=== PATIENT | female | born 2000 | race Caucasian/White ===

== ENCOUNTER 2019-12-06 11:30 | Emergency (ER) | payer SELFPAY ==
[~2019-12-06] VITALS: Ht 157 cm; Wt 115.3 kg
--- NOTE | 2019-12-06 11:57 | ED GU-Female ---
General Chief Complaint: Female Reproductive Stated Complaint: HEAVY VAG BLEEDING - POSS PREG Source: patient Exam Limitations: no limitations History of Present Illness Date Seen by Provider: Dec 06, 2019 Time Seen by Provider: 11:55 Initial Comments To ER with vaginal bleeding. States that she used about 6 tampons yesterday, 4 today. AB 3. States she has not had a period since June and is typically irregular. She's had 3 negative tests at home. Timing/Duration: constant Severity/Quality: other Prior Genitourinary Problems: none (no pain) Associated Symptoms: denies symptoms Allergies and Home Medications Home Medications Medroxyprogesterone Acetate 10 Mg Tablet, 10 MG PO DAILY Prescribed by: GI BLANKENSHIP on 12/06/19 1226 Patient Home Medication List Home Medication List Reviewed: Yes Review of Systems Review of Systems Constitutional: see HPI EENTM: see HPI Respiratory: no symptoms reported Cardiovascular: no symptoms reported Genitourinary: no symptoms reported Musculoskeletal: no symptoms reported Skin: no symptoms reported Psychiatric/Neurological: No Symptoms Reported Endocrine: No Symptoms Reported Past Mtrcxli-Mbuuwn-Xvmbzh Hx Patient Social History Recent Foreign Travel: No Contact w/Someone Who Travel: No Physical Exam Vital Signs Vital Signs - First Documented 12/06/19 11:40 Temp 36.6 Pulse 76 Resp 18 B/P (MAP) 135/81 (99) Pulse Ox 98 Capillary Refill : Height, Weight, BMI Height: '" Weight: lbs. oz. kg; BMI Method: General Appearance: WD/WN, no apparent distress HEENT: PERRL/EOMI, normal ENT inspection Respiratory: no respiratory distress, no accessory muscle use Gastrointestinal: normal bowel sounds, non tender Pelvic: normal external exam, other (pelvic exam with Mayelin, patient rn palliative care at the bedside. Small amount of dark blood in the vaginal vault, no h emorrhage.) Extremities: normal range of motion, non-tender Neurologic/Psychiatric: alert, normal mood/affect, oriented x 3 Skin: normal color, warm/dry Progress/Results/Core Measures Suspected Sepsis SIRS Temperature: Pulse: Respiratory Rate: Laboratory Tests 12/06/19 11:50: White Blood Count 8.5 Blood Pressure / Mean: Laboratory Tests 12/06/19 11:50: Creatinine 0.95, INR Comment 1.0, Platelet Count 346, Total Bilirubin 0.9 Results/Orders Lab Results Laboratory Tests Test 12/06/19 11:50 12/06/19 12:05 Range/Units White Blood Count 8.5 4.3-11.0 10^3/uL Red Blood Count 5.08 4.35-5.85 10^6/uL Hemoglobin 14.6 11.5-16.0 G/DL Hematocrit 45 35-52 % Mean Corpuscular Volume 88 80-99 FL Mean Corpuscular Hemoglobin 29 25-34 PG Mean Corpuscular Hemoglobin Concent 33 32-36 G/DL Red Cell Distribution Width 13.8 10.0-14.5 % Platelet Count 346 130-400 10^3/uL Mean Platelet Volume 10.8 H 7.4-10.4 FL Neutrophils (%) (Auto) 47 42-75 % Lymphocytes (%) (Auto) 39 12-44 % Monocytes (%) (Auto) 10 0-12 % Eosinophils (%) (Auto) 4 0-10 % Basophils (%) (Auto) 1 0-10 % Neutrophils # (Auto) 4.0 1.8-7.8 X 10^3 Lymphocytes # (Auto) 3.3 1.0-4.0 X 10^3 Monocytes # (Auto) 0.9 0.0-1.0 X 10^3 Eosinophils # (Auto) 0.3 0.0-0.3 10^3/uL Basophils # (Auto) 0.0 0.0-0.1 10^3/uL Prothrombin Time 13.3 12.2-14.7 SEC INR Comment 1.0 0.8-1.4 Activated Partial Thromboplast Time 31 24-35 SEC Sodium Level 141 135-145 MMOL/L Potassium Level 4.5 3.6-5.0 MMOL/L Chloride Level 113 H 98-107 MMOL/L Carbon Dioxide Level 16 L 21-32 MMOL/L Anion Gap 12 5-14 MMOL/L Blood Urea Nitrogen 11 7-18 MG/DL Creatinine 0.95 0.60-1.30 MG/DL Estimat Glomerular Filtration Rate > 60 BUN/Creatinine Ratio 12 Glucose Level 97 70-105 MG/DL Calcium Level 8.8 8.5-10.1 MG/DL Corrected Calcium 8.7 8.5-10.1 MG/DL Total Bilirubin 0.9 0.1-1.0 MG/DL Aspartate Amino Transf (AST/SGOT) 29 5-34 U/L Alanine Aminotransferase (ALT/SGPT) 33 0-55 U/L Alkaline Phosphatase 68 40-136 U/L Total Protein 7.8 6.4-8.2 GM/DL Albumin 4.1 3.2-4.5 GM/DL Serum Test, Qualitative NEGATIVE NEGATIVE Urine Color YELLOW Urine Clarity CLEAR Urine pH 5.5 5-9 Urine Specific [place] >=1.030 1.016-1.022 Urine Protein 1+ H NEGATIVE Urine Glucose (UA) NEGATIVE NEGATIVE Urine Ketones NEGATIVE NEGATIVE Urine Nitrite NEGATIVE NEGATIVE Urine Bilirubin 1+ H NEGATIVE Urine Urobilinogen 0.2 < = 1.0 MG/DL Urine Leukocyte Esterase NEGATIVE NEGATIVE Urine RBC (Auto) 3+ H NEGATIVE Urine RBC 2-5 H /HPF Urine WBC 0-2 /HPF Urine Squamous Epithelial Cells 2-5 /HPF Urine Crystals NONE /LPF Urine Amorphous Sediment FEW KATTY URATES H /LPF Urine Bacteria TRACE /HPF Urine Casts NONE /LPF Urine Mucus NEGATIVE /LPF Urine Culture Indicated YES Micro Results Microbiology 12/06/19 Genital Culture, Resulted Pending 12/06/19 Wet Prep - Final, Resulted My Orders Orders - GI BLANKENSHIP APRN Hcg,Qualitative Serum (12/06/19 11:52) Wet Prep (12/06/19 11:57) Genital Culture (12/06/19 11:57) Vital Signs/I&O 12/06/19 11:40 Temp 36.6 Pulse 76 Resp 18 B/P (MAP) 135/81 (99) Pulse Ox 98 Capillary Refill : Departure Impression Primary Impression: History of heavy vaginal bleeding Additional Impressions: Abnormal vaginal bleeding Bacterial vaginosis Disposition: 01 HOME, SELF-CARE Condition: Stable Departure-Patient Inst. Decision time for Depature: 12:24 Referrals: MANGO YU DENNIS G MD SHAW, ANGELA C DO Patient Instructions: Bacterial Vaginosis (DC), IRREGULAR VAGINAL BLEEDING Add. Discharge Instructions: 1. Follow-up with one of the gynecologists listed. Return to ER for any concerns. All discharge instructions reviewed with patient and/or family. Voiced understanding. Scripts Metronidazole (Flagyl) 500 Mg Tablet 500 MG PO BID, #14 TAB Prov: GI BLANKENSHIP APRN 12/06/19 Medroxyprogesterone Acetate (Medroxyprogesterone Acetate) 10 Mg Tablet 10 MG PO DAILY, #7 TAB Prov: GI BLANKENSHIP APRN 12/06/19 GI BLANKENSHIP APRN Dec 06, 2019 11:57
--- OUTSIDE RECORDS SUMMARY | 2019-12-06 11:57 | XMS REPORT | Continuity of Care Document ---
Author Organization Unknown Address Unknown Phone Unavailable Allergies There is no data. Medications There is no data. Problems There is no data. Procedures There is no data. Results Test Result Range COVID-19 ([facility]) - 11/06/19 10:08 TSH - 11/24/19 16:00 TSH 2.25 mIU/L NRG CULTURE, GENITAL - 11/25/19 16:19 CULTURE, GENITAL SEE NOTE NRG GC/CHLAMYDIA (SWAB OR URINE)-RAPID - 12/07 16:19 CHLAMYDIA TRACHOMATIS RNA, TMA NOT DETECTED NOT DETECTED NEISSERIA GONORRHOEAE RNA, TMA NOT DETECTED NOT DETECTED COMMENT NRG SUREPATH PAP RFX HPV mRNA E6/E7 - 16:19 CLINICAL INFORMATION: NRG LMP: NRG PREV. PAP: NRG PREV. BX: NRG SOURCE: NRG STATEMENT OF ADEQUACY: NRG INTERPRETATION/RESULT: NRG LABOR EXPEDITER: NRG INFECTION: NRG COMMENT NRG INSULIN LEVEL - 11/26/19 08:14 INSULIN 40.2 uIU/mL NRG FSH, SERUM - 11/26/19 08:14 FSH 7.7 mIU/mL NRG LH - 11/26/19 08:14 LH 9.6 mIU/mL NRG TESTOSTERONE, TOTAL (WOMEN, CHILDREN, HY POGONADAL MALES) - 11/26/19 08:14 TESTOSTERONE, TOTAL, LC/MS/MS NRG FREE TESTOSTERONE NRG Encounters ACCT No. Visit Date/Time Discharge Status Pt. Type Provider Facility Loc./Unit Complaint [id number] 11/26/2019 08:20:00 11/26/2019 23:59: 59 CLS Outpatient KACY ORNELAS LAC [id number] 11/26/2019 08:20:00 Document Registration [id number] 11/25/2019 15:20:00 Document Registration [id number] 11/24/2019 15:20:00 Document Registration [id number] 11/06/2019 16:45:00 Document Registration
[2019-12-06 12:01] LABS: BASOPHILS % (AUTO) 1 % (0-10); EOSINOPHILS # (AUTO) 0.3 10^3/uL (0.0-0.3); EOSINOPHILS % (AUTO) 4 % (0-10); HEMATOCRIT 45 % (35-52); HEMOGLOBIN 14.6 G/DL (11.5-16.0); LYMPHOCYTES # (AUTO) 3.3 X 10^3 (1.0-4.0); LYMPHOCYTES % (AUTO) 39 % (12-44); MEAN CORPUSCULAR HEMOGLOBIN 29 PG (25-34); MEAN CORPUSCULAR HGB CONC 33 G/DL (32-36); MEAN CORPUSCULAR VOLUME 88 FL (80-99); MEAN PLATELET VOLUME 10.8 FL (7.4-10.4); MONOCYTES # (AUTO) 0.9 X 10^3 (0.0-1.0); MONOCYTES % (AUTO) 10 % (0-12); NEUTROPHILS % (AUTO) 47 % (42-75); PLATELET COUNT 346 10^3/uL (130-400); RED CELL DISTRIBUTION WIDTH 13.8 % (10.0-14.5); WHITE BLOOD COUNT 8.5 10^3/uL (4.3-11.0)
[2019-12-06 12:14] LABS: ALBUMIN 4.1 GM/DL (3.2-4.5); CHLORIDE 113 MMOL/L (98-107); SODIUM 141 MMOL/L (135-145)
[2019-12-06 12:15] LABS: CALCIUM 8.8 MG/DL (8.5-10.1)
[2019-12-06 12:16] LABS: GLUCOSE 97 MG/DL (70-105); TOTAL PROTEIN 7.8 GM/DL (6.4-8.2)
[2019-12-06 12:17] LABS: CARBON DIOXIDE 16 MMOL/L (21-32); PROTHROMBIN TIME PATIENT 13.3 SEC (12.2-14.7)
[2019-12-06 12:18] LABS: BILIRUBIN,TOTAL 0.9 MG/DL (0.1-1.0); POTASSIUM 4.5 MMOL/L (3.6-5.0)
[2019-12-06 12:20] LABS: ALKALINE PHOSPHATASE 68 U/L (40-136); CREATININE SERUM 0.95 MG/DL (0.60-1.30); GFR ESTIMATED > 60
[2019-12-06 12:21] LABS: BUN/CREATININE RATIO 12
[2019-12-06 12:22] LABS: CLARITY,URINE CLEAR; COLOR,URINE YELLOW; GLUCOSE, URINE (UA) NEGATIVE (NEGATIVE); KETONES,URINE NEGATIVE (NEGATIVE); LEUKOCYTE ESTERASE ,URINE NEGATIVE (NEGATIVE); NITRITE,URINE NEGATIVE (NEGATIVE); PH,URINE 5.5 (5-9); PROTEIN,URINE 1+ (NEGATIVE)
[2019-12-06 12:23] LABS: ALANINE AMINOTRANSFERASE 33 U/L (0-55)
[2019-12-06 12:24] LABS: AMORPHOUS SEDIMENT,UR FEW AMOR URATES /LPF; BACTERIA,URINE TRACE /HPF; BILIRUBIN,URINE 1+ (NEGATIVE); WBC,URINE 0-2 /HPF
[2019-12-06] MEDS ORDERED: MEDR10TA9 PO (12:26)
[2019-12-06] MEDS ORDERED: METR500T PO (12:28)
[2019-12-06 12:33] VITALS: BP 133/89
== END 2019-12-06 12:36 | disposition home or self-care (01) ==
LOC: ER 11:31
DX: N76.0 Acute vaginitis (principal)
CPT/HCPCS: 36415; 80053; 81000; 84703; 85025; 85610; 85730; 87070; 87077; 87088; 87205; 87210

== ENCOUNTER → 2020-03-18 | Outpatient (CLI) | payer OTHER ==
[~2020-03-18] MED LIST: MEDR10TA9 PO; METR500T PO
--- NOTE | 2020-03-18 17:29 | Diagnostic Imaging Report ---
Ultrasound of the breasts, limited bilateral. INDICATION: Bilateral axillary lumps COMPARISON: There are no prior studies available for comparison. FINDINGS: Reportedly, the patient has pain and lumps in both axillae. The ultrasound examination of each axillae failed to show any sign of a discrete solid or cystic mass. There is no evidence for an abscess either. Clinical follow-up is recommended. IMPRESSION: There is no evidence for malignancy or for an acute abnormality. Clinical follow-up is recommended. ACR BI-RADS Category 1: Negative. Result letter will be mailed to the patient. Note: At least 10% of breast cancer is not imaged by mammography. Dictated by: Dictated on workstation # [id number]
== END ==
LOC: RAD 11:56
PROVIDERS: ATTEND Nurse Practitioner Family
DX: N63.32 Unspecified lump in axillary tail of the left breast (principal)
CPT/HCPCS: 76642

== ENCOUNTER 2020-10-28 17:13 | Emergency (ER) | payer SELFPAY ==
[~2020-10-28] VITALS: Ht 157 cm; Wt 126.0 kg
[2020-10-28] MEDS ORDERED: LIDOCAINE UROJET 2% GEL 10 ML PKG ONE (17:22)
[2020-10-28] MEDS ORDERED: LIDOCAINE UROJET 2% GEL 10 ML PKG TOP ONE (17:30)
--- NOTE | 2020-10-28 17:33 | ED GI ---
General Stated Complaint: RECTAL BLEEDING Source of Information: Patient Exam Limitations: No Limitations History of Present Illness Date Seen by Provider: Oct 28, 2020 Time Seen by Provider: 17:29 Initial Comments To ER by private vehicle with reports of rectal bleeding and pain with bowel movement after anal sex this morning at 7 AM. She states that she and her have anal sex a couple of times a week but she has never bled like this before. She states that she is only bleeding when she has a bowel movement and notices blood on the toilet paper. She has no bleeding diatheses, takes no anticoagulation. Timing/Duration: 1-2 Days Severity/Quality: Moderate Location: Other Radiation: No Radiation Associated Symptoms: Denies Symptoms Allergies and Home Medications Allergies Coded Allergies: Penicillins (Verified Allergy, Unknown, 10/28/20) sulfamethoxazole (Verified Allergy, Unknown, 10/28/20) trimethoprim (Verified Allergy, Unknown, 10/28/20) Home Medications Medroxyprogesterone Acetate 10 Mg Tablet, 10 MG PO DAILY Prescribed by: GI BLANKENSHIP on 12/06/19 1226 Metronidazole 500 Mg Tablet, 500 MG PO BID Prescribed by: GI BLANKENSHIP on 12/06/19 1228 Patient Home Medication List Home Medication List Reviewed: Yes Review of Systems Review of Systems Constitutional: see HPI EENTM: No Symptoms Reported Respiratory: No Symptoms Reported Cardiovascular: No Symptoms Reported Gastrointestinal: See HPI, Abdominal Pain Genitourinary: No Symptoms Reported Musculoskeletal: no symptoms reported Skin: no symptoms reported Psychiatric/Neurological: No Symptoms Reported Endocrine: No Symptoms Reported Hematologic/Lymphatic: No Symptoms Reported Past Slajitw-Yvejjv-Jebvhd Hx Patient Social History Type Used: Cigarettes 2nd Hand Smoke Exposure: Yes Recent Hopitalizations: No Immunizations Up To Date Tetanus Booster (TDap): Less than 5yrs Seasonal Allergies Seasonal Allergies: No Past Medical History Surgeries: No Respiratory: No Cardiac: No Neurological: No Genitourinary: No Gastrointestinal: No Musculoskeletal: No Endocrine: No HEENT: No Cancer: No Psychosocial: Yes Anxiety, Bipolar, Personality Disorder, Depression Integumentary: No Blood Disorders: No Adverse Reaction/Blood Tranf: No Physical Exam Vital Signs Capillary Refill : Height/Weight/BMI Height: '" Weight: lbs. oz. kg; 46.00 BMI Method: General Appearance: WD/WN, no apparent distress, obese HEENT: PERRL/EOMI, normal ENT inspection Neck: non-tender, full range of motion Respiratory: normal breath sounds, no respiratory distress, no accessory muscle use Cardiovascular: no murmur, tachycardia Gastrointestinal: normal bowel sounds, non tender, soft Neurologic/Psychiatric: alert, normal mood/affect, oriented x 3 Skin: normal color, warm/dry Exam Comments Genital exam done with Glenis RN at the bedside. There is no blood in the underwear. There is no blood at the anus. There is a posterior midline fissure. Progress/Results/Core Measures Results/Orders My Orders Orders - GI BLANKENSHIP APRN Lidocaine 2% (Urojet) (Xylocaine Urojet) (10/28/20 17:30) Departure Impression Primary Impression: Anal fissure Disposition: 01 HOME, SELF-CARE Condition: Stable Departure-Patient Inst. Decision time for Depature: 17:32 Referrals: [facility] (PCP) Primary Care Physician KYLE LUU APRN (Family) Primary Care Physician Patient Instructions: Anal Fissure (DC) Add. Discharge Instructions: 1. Keep your stool soft by drinking plenty of fluids and taking a stool softener like Colace. Use the cream as directed. GI BLANKENSHIP APRN Oct 28, 2020 17:33
[2020-10-28 17:38] VITALS: BP 136/99
== END 2020-10-28 17:38 | disposition home or self-care (01) ==
LOC: EDUNIT# 17:13 → ER 17:15
DX: K60.2 Anal fissure, unspecified (principal); R00.0 Tachycardia, unspecified; E66.9 Obesity, unspecified; Z68.42 Body mass index [BMI] 45.0-49.9, adult; Z77.22 Contact with and (suspected) exposure to environmental tobacco smoke (acute) (chronic)
CPT/HCPCS: 99282

== ENCOUNTER 2020-11-22 09:35 | Emergency (ER) | payer OTHER ==
[~2020-11-22] VITALS: Ht 157.4 cm; Wt 130.0 kg
[2020-11-22 09:58] LABS: BASOPHILS # (AUTO) 0.1 10^3/uL (0.0-0.1); BASOPHILS % (AUTO) 1 % (0-10); EOSINOPHILS # (AUTO) 0.6 10^3/uL (0.0-0.3); EOSINOPHILS % (AUTO) 5 % (0-10); HEMATOCRIT 47 % (35-52); LYMPHOCYTES # (AUTO) 3.1 10^3/uL (1.0-4.0); LYMPHOCYTES % (AUTO) 30 % (12-44); MEAN CORPUSCULAR HEMOGLOBIN 29 pg (25-34); MEAN CORPUSCULAR HGB CONC 32 g/dL (32-36); MEAN CORPUSCULAR VOLUME 93 fL (80-99); MEAN PLATELET VOLUME 10.1 fL (9.0-12.2); MONOCYTES # (AUTO) 0.8 10^3/uL (0.0-1.0); MONOCYTES % (AUTO) 8 % (0-12); NEUTROPHILS # (AUTO) 5.7 10^3/uL (1.8-7.8); NEUTROPHILS % (AUTO) 56 % (42-75); PLATELET COUNT 350 10^3/uL (130-400); WHITE BLOOD COUNT 10.3 10^3/uL (4.3-11.0)
[2020-11-22 10:08] LABS: ALBUMIN 3.6 GM/DL (3.2-4.5)
[2020-11-22 10:09] LABS: CHLORIDE 114 MMOL/L (98-107); POTASSIUM 4.2 MMOL/L (3.6-5.0); SODIUM 145 MMOL/L (135-145)
[2020-11-22 10:10] LABS: CALCIUM 8.5 MG/DL (8.5-10.1)
[2020-11-22 10:11] LABS: GLUCOSE 104 MG/DL (70-105); TOTAL PROTEIN 6.3 GM/DL (6.4-8.2)
[2020-11-22 10:12] LABS: CARBON DIOXIDE 20 MMOL/L (21-32)
[2020-11-22 10:13] LABS: BILIRUBIN,TOTAL 0.7 MG/DL (0.1-1.0)
[2020-11-22 10:14] LABS: ALKALINE PHOSPHATASE 75 U/L (40-136)
[2020-11-22 10:15] LABS: CREATININE SERUM 1.05 MG/DL (0.60-1.30); GFR ESTIMATED > 60
[2020-11-22 10:16] LABS: BUN/CREATININE RATIO 13
[2020-11-22 10:18] LABS: ALANINE AMINOTRANSFERASE 23 U/L (0-55)
--- NOTE | 2020-11-22 10:21 | ED GI ---
General Chief Complaint: Abdominal/GI Problems Stated Complaint: VOMITTING BLOOD Nursing Triage Note: PT C/O NAUSEA AND VOMITING ONCE TODAY. PT REPORTS EMESIS WAS YELLOW AND RED. PT DENIES PAIN. Source of Information: Patient Exam Limitations: No Limitations History of Present Illness Date Seen by Provider: Nov 22, 2020 Time Seen by Provider: 09:53 Initial Comments This 20-year-old young lady presents to the emergency room with complaints of vomiting intermittently for about 6 weeks. She reports there is sometimes blood in her emesis. She has been seen in the primary care office by Dr. Ford and has a referral to Dr. Cannon December 13. She has been taking pantoprazole for the past 2 weeks. She has not taken any nausea medication. She reports occasional alcohol consumption and she did have a drink last night. She also has a history of smoking. She is not in significant pain at this time. Allergies and Home Medications Allergies Coded Allergies: Penicillins (Verified Allergy, Unknown, 10/28/20) sulfamethoxazole (Verified Allergy, Unknown, 10/28/20) trimethoprim (Verified Allergy, Unknown, 10/28/20) Home Medications Famotidine 20 Mg Tablet, 20 MG PO BID Prescribed by: JENELLE BELLO on 11/22/20 1108 Medroxyprogesterone Acetate 10 Mg Tablet, 10 MG PO DAILY Prescribed by: GI BLANKENSHIP on 12/06/19 1226 Metronidazole 500 Mg Tablet, 500 MG PO BID Prescribed by: GI BLANKENSHIP on 12/06/19 1228 Ondansetron 4 Mg Tab.rapdis, 4 MG SL Q4H PRN for NAUSEA/VOMITING Prescribed by: JENELLE BELLO on 11/22/20 1108 Sucralfate 1 Gm Tablet, 1 GM PO QID Crush or dissolve in 5-10 mL water to make slurry. Take 30 min before meals and bedtime Prescribed by: JENELLE BELLO on 11/22/20 1108 Patient Home Medication List Home Medication List Reviewed: Yes Review of Systems Review of Systems Constitutional: no symptoms reported EENTM: No Symptoms Reported Respiratory: No Symptoms Reported Cardiovascular: No Symptoms Reported Gastrointestinal: See HPI Genitourinary: No Symptoms Reported Musculoskeletal: no symptoms reported Skin: no symptoms reported Psychiatric/Neurological: No Symptoms Reported Endocrine: No Symptoms Reported Past Svrjrrp-Ghxgbn-Ccvpqp Hx Patient Social History Tobacco Use?: Yes Tobacco type used: Cigarettes Smoking Status: Current Everyday Smoker Substance use?: Yes Substance type: Nicotine Alcohol Use?: Yes Alcohol Frequency: Rarely Pt feels they are or have been: No Immunizations Up To Date Tetanus Booster (TDap): Less than 5yrs Seasonal Allergies Seasonal Allergies: No Past Medical History Surgeries: Yes (Dental) Adenoidectomy, Tonsillectomy Respiratory: No Cardiac: No Neurological: No : No Last Menstrual Period: Oct 26, 2020 Female Reproductive Disorders: Endometriosis, Polycystic Ovarian Dis Genitourinary: No Gastrointestinal: Yes (Lactose intolerant) Gastroesophageal Reflux Musculoskeletal: No Endocrine: Yes (Obesity) HEENT: No Cancer: No Psychosocial: Yes Anxiety, Bipolar, Personality Disorder, Depression Integumentary: No Blood Disorders: No Adverse Reaction/Blood Tranf: No Physical Exam Vital Signs Vital Signs - First Documented 11/22/20 09:45 Temp 35.9 Pulse 77 Resp 15 B/P (MAP) 118/74 (89) Pulse Ox 97 O2 Delivery Room Air Capillary Refill : Less Than 3 Seconds Height/Weight/BMI Height: '" Weight: lbs. oz. kg; 52.00 BMI Method: General Appearance: WD/WN, no apparent distress, obese HEENT: normal ENT inspection Neck: normal inspection Respiratory: lungs clear, normal breath sounds, no respiratory distress Cardiovascular: regular rate, rhythm, no edema, no murmur Gastrointestinal: normal bowel sounds, soft Extremities: normal inspection, no pedal edema Neurologic/Psychiatric: casing runner II-XII nml as tested, no motor/sensory deficits, a lert, normal mood/affect Skin: normal color Progress/Results/Core Measures Results/Orders Lab Results Laboratory Tests Test 11/22/20 09:50 11/22/20 10:10 Range/Units White Blood Count 10.3 4.3-11.0 10^3/uL Red Blood Count 5.12 H 3.80-5.11 10^6/uL Hemoglobin 15.0 11.5-16.0 g/dL Hematocrit 47 35-52 % Mean Corpuscular Volume 93 80-99 fL Mean Corpuscular Hemoglobin 29 25-34 pg Mean Corpuscular Hemoglobin Concent 32 32-36 g/dL Red Cell Distribution Width 13.4 10.0-14.5 % Platelet Count 350 130-400 10^3/uL Mean Platelet Volume 10.1 9.0-12.2 fL Immature Granulocyte % (Auto) 1 % Neutrophils (%) (Auto) 56 42-75 % Lymphocytes (%) (Auto) 30 12-44 % Monocytes (%) (Auto) 8 0-12 % Eosinophils (%) (Auto) 5 0-10 % Basophils (%) (Auto) 1 0-10 % Neutrophils # (Auto) 5.7 1.8-7.8 10^3/uL Lymphocytes # (Auto) 3.1 1.0-4.0 10^3/uL Monocytes # (Auto) 0.8 0.0-1.0 10^3/uL Eosinophils # (Auto) 0.6 H 0.0-0.3 10^3/uL Basophils # (Auto) 0.1 0.0-0.1 10^3/uL Immature Granulocyte # (Auto) 0.1 0.0-0.1 10^3/uL Sodium Level 145 135-145 MMOL/L Potassium Level 4.2 3.6-5.0 MMOL/L Chloride Level 114 H 98-107 MMOL/L Carbon Dioxide Level 20 L 21-32 MMOL/L Anion Gap 11 5-14 MMOL/L Blood Urea Nitrogen 14 7-18 MG/DL Creatinine 1.05 0.60-1.30 MG/DL Estimat Glomerular Filtration Rate > 60 BUN/Creatinine Ratio 13 Glucose Level 104 70-105 MG/DL Calcium Level 8.5 8.5-10.1 MG/DL Corrected Calcium 8.8 8.5-10.1 MG/DL Total Bilirubin 0.7 0.1-1.0 MG/DL Aspartate Amino Transf (AST/SGOT) 17 5-34 U/L Alanine Aminotransferase (ALT/SGPT) 23 0-55 U/L Alkaline Phosphatase 75 40-136 U/L Total Protein 6.3 L 6.4-8.2 GM/DL Albumin 3.6 3.2-4.5 GM/DL Lipase 52 8-78 U/L Serum Test, Qualitative NEGATIVE NEGATIVE Prothrombin Time 12.8 12.2-14.7 SEC INR Comment 0.9 0.8-1.4 Activated Partial Thromboplast Time 29 24-35 SEC My Orders Orders - JENELLE SHANNON MD Cbc With Automated Diff (11/22/20 09:53) Comprehensive Metabolic Panel (11/22/20 09:53) Hcg,Qualitative Serum (11/22/20 09:53) Protime With Inr (11/22/20 09:53) Partial Thromboplastin Time (11/22/20 09:53) Ed Iv/Invasive Line Start (11/22/20 09:53) Ondansetron Injection (Zofran Injectio (11/22/20 10:30) Famotidine Injection (Pepcid Injection) (11/22/20 10:30) Lactated Ringers (Lr 1000 Ml Iv Solution (11/22/20 10:30) Lipase (11/22/20 10:33) Helicobacter Pylori Khloe Igg (11/22/20 10:33) Medications Given in ED Current Medications Medications Dose Ordered Sig/Kizzy Route Start Time Stop Time Status Last Admin Dose Admin Famotidine 20 mg ONCE ONCE IVP 11/22/20 10:30 11/22/20 10:31 DC 11/22/20 10:56 20 MG Lactated Ringer's 1,000 ml @ 0 mls/hr Q0M ONCE IV 11/22/20 10:30 11/22/20 10:31 DC 11/22/20 10:55 1,000 MLS/HR Ondansetron HCl 8 mg ONCE ONCE IVP 11/22/20 10:30 11/22/20 10:31 DC 11/22/20 10:51 8 MG Vital Signs/I&O 11/22/20 11/22/20 09:45 11:33 Temp 35.9 35.9 Pulse 77 62 Resp 15 15 B/P (MAP) 118/74 (89) 111/66 (89) Pulse Ox 97 97 O2 Delivery Room Air Room Air Blood Pressure Mean: 89 Progress Progress Note : Progress Note Work-up was unremarkable. Patient had no vomiting while in the ER. Vital signs were unremarkable. We will increase her regimen by adding Pepcid and Carafate. She was advised to call Dr. Cannon's office to see if her follow-up could be expedited. See discharge instructions. Departure Impression Primary Impression: Hematemesis Qualified Codes: K92.0 - Hematemesis Additional Impressions: Nausea vomiting and diarrhea Gastroesophageal reflux Qualified Codes: K21.9 - Gastro-esophageal reflux disease without esophagitis Disposition: 01 HOME, SELF-CARE Condition: Improved Departure-Patient Inst. Decision time for Depature: 10:55 Referrals: [facility] (PCP) Primary Care Physician KYLE LUU APRN (Family) Primary Care Physician Patient Instructions: Acid Reflux and Gastroesophageal Reflux Disease in Adults Add. Discharge Instructions: Add Pepcid (famotidine) 20 mg twice daily to your antiacid regimen until you see Dr. Cannon. Also add Carafate (sucralfate). This medication should be crushed or dissolved in a small amount of water and taken 30 minutes before meals and bedtime. Avoid the following: Eating large meals, eating close to bedtime, caffeine, carbonation, chocolate, citrus fruits and juices, tomato products, alcohol, tobacco products, mints, fatty or greasy foods, spicy foods, NSAID medications such as ibuprofen or naproxen, or anything else you know irritate your stomach. Call with questions or concerns. Return to the emergency room if you have worsening symptoms. All discharge instructions reviewed with patient and/or family. Voiced understanding. Scripts Famotidine (Pepcid) 20 Mg Tablet 20 MG PO BID, #60 TAB Prov: JENELLE SHANNON MD 11/22/20 Ondansetron (Ondansetron Odt) 4 Mg Tab.rapdis 4 MG SL Q4H PRN for NAUSEA/VOMITING, #10 TAB Prov: JENELLE SHANNON MD 11/22/20 Sucralfate (Carafate) 1 Gm Tablet 1 GM PO QID, #120 TAB Crush or dissolve in 5-10 mL water to make slurry. Take 30 min before meals and bedtime Prov: JENELLE SHANNON MD 11/22/20 Copy Copies To 1: GHANSHYAM PINON DO Copies To 2: THERESA CANNON DO JENELLE SHANNON MD Nov 22, 2020 10:21
[2020-11-22 10:27] LABS: INR 0.9 (0.8-1.4); PROTHROMBIN TIME PATIENT 12.8 SEC (12.2-14.7)
[2020-11-22] MEDS ORDERED: LACTATED RINGERS 1,000 ML IV ONE (10:30)
[2020-11-22] MEDS ORDERED: ONDANSETRON 4 MG/2 ML (SDV) Z0FRAN IVP ONE (10:30)
[2020-11-22] MEDS ORDERED: FAMOTIDINE 20MG/2ML IV (PEPCID) IVP ONE (10:30)
[2020-11-22] MEDS ORDERED: SUCR1TAB36 PO (11:08)
[2020-11-22] MEDS ORDERED: FAMO-119 PO (11:08)
[2020-11-22] MEDS ORDERED: ONDA4TAB11 SL (11:08)
[2020-11-22 11:33] VITALS: BP 111/66
== END 2020-11-22 11:30 | disposition home or self-care (01) ==
LOC: EDUNIT# 09:35 → ER 09:38
DX: K92.0 Hematemesis (principal); K21.9 Gastro-esophageal reflux disease without esophagitis; E66.9 Obesity, unspecified; Z68.43 Body mass index [BMI] 50.0-59.9, adult; F17.210 Nicotine dependence, cigarettes, uncomplicated
CPT/HCPCS: 36415; 80053; 83690; 84703; 85025; 85610; 85730; 86677

== ENCOUNTER 2020-12-02 05:31 | Outpatient (RCR) | payer OTHER ==
[~2020-12-02] VITALS: Ht 170 cm; Wt 132.7 kg
== END 2020-12-03 12:56 | disposition home or self-care (01) ==
LOC: PREOP 05:31
PROVIDERS: ATTEND Surgery
DX: Z01.812 Encounter for preprocedural laboratory examination (principal); R04.2 Hemoptysis; R11.10 Vomiting, unspecified; Z20.822 Contact with and (suspected) exposure to COVID-19
CPT/HCPCS: 87635

== ENCOUNTER → 2020-12-02 | Outpatient (CLI) | payer OTHER ==
[~2020-12-02] MED LIST changes: +FAMO-119 PO; +ONDA4TAB11 SL; +PANT40TA52 PO; +SUCR1TAB36 PO
== END ==
LOC: LABNPT 07:20
DX: Z20.822 Contact with and (suspected) exposure to COVID-19 (principal)

== ENCOUNTER → 2020-12-06 | Day surgery (SDC) | payer OTHER ==
[~2020-12-06] VITALS: Ht 171 cm; Wt 132.0 kg
[~2020-12-06] MED LIST changes: +HURRICAINE EXT TUBE (BENZOCAINE) XX PRN; +LACTATED RINGERS 1,000 ML IV STA; +MIDAZOLAM 2 MG/2 ML (VERSED) VIAL ONE; +proPOfol 200 MG/20 ML (DIPRIVAN) VIAL IV ONE
[2020-12-06 11:35] VITALS: BP 138/77
--- NOTE | 2020-12-06 11:45 | Progress Note-Pre Operative ---
Pre-Operative Progress Note H&P Reviewed The H&P was reviewed, patient examined and no changes noted. Time Seen by Provider: 11:43 Date H&P Reviewed: Dec 06, 2020 Time H&P Reviewed: 11:43 Pre-Operative Diagnosis: Hematemesis, Epigastric pain NIVIA PALMER DO Dec 06, 2020 11:45
--- NOTE | 2020-12-06 13:23 | Progress Note-Post Operative ---
Post-Operative Progess Note Surgeon (s)/Shellfish Shucker (s) Surgeon NIVIA PALMER DO Shellfish Shucker: none Pre-Operative Diagnosis Hematemesis, Epigastric pain Post-Operative Diagnosis Gastritis Hiatal hernia Esophageal ulcer Procedure & Operative Findings Date of Procedure 12/06/20 Procedure Performed/Findings PROCEDURE NOTE: After informed consent was obtained, the patient was brought to the endoscopy suite, placed in bed in left lateral decubitus position. She was administered IV sedation by the WET MACHINE OPERATOR who then monitored vitals the entire time, heart rate, blood pressure and pulse ox and the scope was inserted down the mouth through the esophagus into the stomach. On the way down, noted some mild esophagitis, took a picture, pushed into the stomach, pushed past the antrum into the duodenum. Duodenum looked good. Pulled back and did a biopsy of antrum (saw mild gastritis), then retroflexed the scope, saw hiatal hernia, took a picture of this and then pulled the scope into the GE junction, took another picture of the hiatal hernia and then did a biopsy of the GE junction. Pushed the scope back into the stomach, suctioned all the air out of the stomach. Had seen what looked like ulcers in the esophagus, just above the GE junction and did a biopsy of one of them. At this point pulled the scope up the esophagus and out the mouth. The patient tolerated the procedure, and she recovered in endoscopy suite. Anesthesia Type IV sedation by WET MACHINE OPERATOR Estimated Blood Loss Estimated blood loss (mL): scant Specimens/Packing Specimens Removed antral bx body of stomach bx GE jxn bx esophageal bx NIVIA PALMER DO Dec 06, 2020 13:23
--- NOTE | 2020-12-06 13:24 | Endoscopy Discharge Instruct ---
Endo Procedure/Findings Findings 1.: Gastritis 2.: Hiatal Hernia 3.: Other Findings (Esophageal ulcers) Discharge Instructions - Activity: You might feel a little sleepy until tomorrow. This is due to the medicine you received to relax you. Until tomorrow, you should: NOT drive a car, operate machinery or power tools. NOT drink any alcoholic beverages. NOT make any important decisions or sign importortant papers. Do not return to work until tomorrow, unless otherwise instructed. Resume previous activities tomorrow. Diet: Start by taking liquids. If you tolerate liquids, advance to solid food. 1.: EGD in 1 year Notify Physician - If you experience excessive bleeding, unusual abdominal pain, fever, or chest pain, contact your doctor immediately. NIVIA PALMER DO Dec 06, 2020 13:24
[2020-12-06 13:25] VITALS: BP 148/68
[2020-12-06 13:30] VITALS: BP 130/67
--- NOTE | 2020-12-06 13:31 | Anesthesia-General Post-Op ---
MAC Patient Condition Mental Status/LOC: Same as Preop Cardiovascular: Satisfactory Nausea/Vomiting: Absent Respiratory: Satisfactory Pain: Controlled Complications: Absent Post Op Complications Complications None Follow Up Care/Instructions Patient Instructions None needed. Anesthesiology Discharge Order Discharge Order Patient is doing well, no complaints, stable vital signs, no apparent adverse anesthesia problems. No complications reported per nursing. LONDON ELLIS CRNA Dec 06, 2020 13:31
[2020-12-06 14:00] VITALS: BP 132/79
[2020-12-06 14:05] VITALS: BP 132/79
== END ==
LOC: ENDO 10:58
PROVIDERS: ATTEND Surgery
DX: K29.50 Unspecified chronic gastritis without bleeding (principal); K21.00 Gastro-esophageal reflux disease with esophagitis, without bleeding; K92.0 Hematemesis; K44.9 Diaphragmatic hernia without obstruction or gangrene; E66.9 Obesity, unspecified; K22.10 Ulcer of esophagus without bleeding; F17.210 Nicotine dependence, cigarettes, uncomplicated; F41.9 Anxiety disorder, unspecified; F31.9 Bipolar disorder, unspecified; Z68.42 Body mass index [BMI] 45.0-49.9, adult; Z20.822 Contact with and (suspected) exposure to COVID-19
CPT/HCPCS: 88305